=== PATIENT | female | born 1960 | race Two or more races ===

== ENCOUNTER 2017-03-09 09:19 | Emergency (ER) | payer OTHER ==
[~2017-03-09] VITALS: Ht 157.5 cm; Wt 74.8 kg
[~2017-03-09 09:19] MED LIST: AMBIEN10 MG PO; ATROVENT 00.5 MG/2.5 IH; AZITHROMYCIN250 MG PO; CATAPRES0.1 MG; CATAPRES0.1 MG PO; FIORICET TABLET1 TAB PO; HYZAAR 100-121 UDTAB; LASIX20 MG; NEXIUM40 MG/PACK PO; OMEPRAZOLE20 MG; PREMARIN0.45 MG; SINGULAIR 10MG10 MG PO; SINGULAIR10 MG PO; TRICOR145 MG; TUSSI PRES-B L120 M1 PO; ZESTRIL20 MG PO; [UNRECOGNIZED DRUG - CODE]
[2017-03-09] MEDS ORDERED: ACIDOPHILUS1 EAC3 PO (15:24)
== END 2017-03-09 16:01 | disposition home or self-care (01) ==
LOC: ER 09:19
DX: B34.9 Viral infection, unspecified (principal); E86.0 Dehydration; J11.1 Influenza due to unidentified influenza virus with other respiratory manifestations

== ENCOUNTER 2017-08-18 12:39 | Emergency (ER) | payer OTHER ==
[~2017-08-18] VITALS: Ht 175.3 cm; Wt 72.6 kg
[~2017-08-18 12:39] MED LIST changes: +ACIDOPHILUS1 EAC3 PO
[2017-08-18] MEDS ORDERED: METFORMIN HCL1000 M2 PO (12:48)
[2017-08-18] MEDS ORDERED: ASPIR 8181 MG PO (12:49)
== END 2017-08-18 17:08 | disposition home or self-care (01) ==
LOC: ER 12:39
DX: K29.70 Gastritis, unspecified, without bleeding (principal)

== ENCOUNTER 2018-08-22 09:50 | Outpatient (CLI) | payer OTHER ==
[~2018-08-22 09:50] MED LIST changes: +ASPIR 8181 MG PO; +METFORMIN HCL1000 M2 PO
== END 2018-08-22 15:15 | disposition home or self-care (01) ==
LOC: RAD 09:50
DX: M15.0 Primary generalized (osteo)arthritis (principal); M05.79 Rheumatoid arthritis with rheumatoid factor of multiple sites without organ or systems involvement

== ENCOUNTER 2018-09-04 15:02 | Outpatient (CLI) | payer OTHER | END 2018-09-04 15:28 | disposition home or self-care (01) | LOC: TOM 15:02 | DX: M54.12 Radiculopathy, cervical region (principal); M54.16 Radiculopathy, lumbar region ==

== ENCOUNTER 2018-09-06 08:55 | Outpatient (CLI) | payer OTHER | END 2018-09-06 08:56 | disposition home or self-care (01) | LOC: NUCLEAR 08:55 | DX: M05.79 Rheumatoid arthritis with rheumatoid factor of multiple sites without organ or systems involvement (principal); M87.059 Idiopathic aseptic necrosis of unspecified femur | CPT/HCPCS: 78315; A9503 ==

== ENCOUNTER 2019-09-04 11:43 | Emergency (ER) | payer OTHER ==
[~2019-09-04] VITALS: Ht 165.1 cm; Wt 84.8 kg
[2019-09-04] MEDS ORDERED: CATAPRES0.1 MG (11:52)
== END 2019-09-04 22:05 | disposition home or self-care (01) ==
LOC: ER 11:43
DX: R10.13 Epigastric pain (principal); Z03.818 Encounter for observation for suspected exposure to other biological agents ruled out

== ENCOUNTER 2020-07-20 07:01 | Emergency (ER) | payer OTHER ==
[~2020-07-20] VITALS: Ht 157.5 cm; Wt 79.8 kg
[2020-07-20] MEDS ORDERED: SIMVASTATIN5 MG (07:13)
[2020-07-20] MEDS ORDERED: ORPHENADRINE C100 MG PO (14:24)
[2020-07-20] MEDS ORDERED: KETO10TA2 PO (14:24)
== END 2020-07-20 15:33 ==
LOC: ER 07:01
DX: R25.2 Cramp and spasm (principal); M79.661 Pain in right lower leg; I87.2 Venous insufficiency (chronic) (peripheral)

== ENCOUNTER 2020-11-16 13:30 | Outpatient (CLI) | payer OTHER ==
[~2020-11-16 13:30] MED LIST changes: +KETO10TA2 PO; +ORPHENADRINE C100 MG PO; +SIMVASTATIN5 MG
== END 2020-11-16 14:00 | disposition home or self-care (01) ==
LOC: PPH VACUNA 13:30
PROVIDERS: ATTEND Emergency Medicine Pediatric Emergency Medicine
DX: Z23 Encounter for immunization (principal)

== ENCOUNTER 2021-03-01 14:20 | Emergency (ER) | payer OTHER ==
[~2021-03-01] VITALS: Ht 157.5 cm; Wt 76.2 kg
[2021-03-01] MEDS ORDERED: METFORMIN HCL1000 M3 PO (14:29)
[2021-03-01] MEDS ORDERED: METOPROLOL SUC100 MG PO (14:29)
[2021-03-01] MEDS ORDERED: PANTOPRAZOLE SO40 MG PO (14:29)
[2021-03-01] MEDS ORDERED: AMLODIPINE BESY10 MG PO (14:29)
[2021-03-01] MEDS ORDERED: ATORVASTATIN CA40 MG PO (14:29)
[2021-03-01] MEDS ORDERED: MONTELUKAST SOD10 MG PO (14:30)
[2021-03-01] MEDS ORDERED: SYMBICORT 16010.2 GM IH (14:30)
== END 2021-03-01 17:14 | disposition home or self-care (01) ==
LOC: ER 14:20
DX: J45.998 Other asthma (principal); E11.9 Type 2 diabetes mellitus without complications

== ENCOUNTER 2021-07-14 12:26 | Outpatient (CLI) | payer OTHER ==
[~2021-07-14 12:26] MED LIST changes: +AMLODIPINE BESY10 MG PO; +ATORVASTATIN CA40 MG PO; +METFORMIN HCL1000 M3 PO; +METOPROLOL SUC100 MG PO; +MONTELUKAST SOD10 MG PO; +PANTOPRAZOLE SO40 MG PO; +SYMBICORT 16010.2 GM IH
== END 2021-07-14 12:42 | disposition home or self-care (01) ==
LOC: RAD 12:26
PROVIDERS: ATTEND Internal Medicine Rheumatology
DX: M15.0 Primary generalized (osteo)arthritis (principal); M05.79 Rheumatoid arthritis with rheumatoid factor of multiple sites without organ or systems involvement

== ENCOUNTER 2021-09-02 10:18 | Outpatient (CLI) | payer OTHER | END 2021-09-02 10:29 | disposition home or self-care (01) | LOC: MRI 10:18 | PROVIDERS: ATTEND Internal Medicine Rheumatology | DX: R41.3 Other amnesia (principal); I67.9 Cerebrovascular disease, unspecified | CPT/HCPCS: 70551 ==

== ENCOUNTER 2024-03-17 08:10 | Outpatient (CLI) | payer OTHER | END 2024-03-17 10:18 | disposition home or self-care (01) | LOC: NUCLEAR 08:10 | PROVIDERS: ATTEND Psychiatry & Neurology Neurology | DX: R55 Syncope and collapse (principal) ==

== ENCOUNTER → 2024-03-18 08:10 | Outpatient (CLI) | payer OTHER | END | disposition home or self-care (01) | LOC: NUCLEAR 08:10 | PROVIDERS: ATTEND Internal Medicine Rheumatology | DX: R55 Syncope and collapse (principal) ==

== ENCOUNTER 2024-06-02 10:21 | Outpatient (CLI) | payer OTHER | END 2024-06-02 10:22 | disposition home or self-care (01) | LOC: NUCLEAR 10:21 | DX: I26.99 Other pulmonary embolism without acute cor pulmonale (principal) | CPT/HCPCS: 78582; A9540; A9567 ==